=== PATIENT | female | born 1995 | race Caucasian/White ===

== ENCOUNTER 2017-12-25 13:17 | Inpatient (IN) | payer OTHER ==
[2017-12-25] MEDS ORDERED: ONDANSETRON HCL 4 MG/2 ML VIAL ONE (13:19)
[2017-12-25] MEDS ORDERED: MIDAZOLAM HCL 5 MG/ML VIAL (1 ML) ONE (13:26)
[2017-12-25] MEDS ORDERED: ceFAZolin 2 GM PREMIX 50 ML ONE (13:27)
[2017-12-25 13:45] VITALS: O2SAT 96
[2017-12-25 13:46] LABS: BASOPHIL # 0.1 TH/MM3 (0-0.2); BASOPHIL % 0.6 % (0.0-2.0); EOSINOPHIL # 0.1 TH/MM3 (0-0.4); EOSINOPHIL % 0.7 % (0.0-4.0); HEMATOCRIT 36.9 % (35.0-46.0); HEMOGLOBIN 12.8 GM/DL (11.6-15.3); LYMPHOCYTE # 2.8 TH/MM3 (1.0-4.8); MEAN CELL VOLUME 88.4 FL (80.0-100.0); MEAN CORPUSCULAR HEMOGLOBIN 30.6 PG (27.0-34.0); MEAN CORPUSCULAR HGB CONC 34.6 % (32.0-36.0); MEAN PLATELET VOLUME 11.7 FL (7.0-11.0); MONO % 4.4 % (0.0-8.0); MONOCYTE # 0.7 TH/MM3 (0-0.9); NEUT % 76.3 % (16.0-70.0); PLATELET COUNT 151 TH/MM3 (150-450); RED BLOOD COUNT 4.18 MIL/MM3 (4.00-5.30); RED CELL DISTRIBUTION WIDTH 12.9 % (11.6-17.2); WHITE BLOOD COUNT 15.7 TH/MM3 (4.0-11.0)
[2017-12-25 13:57] LABS: INTERNATIONAL NORMALIZED RATIO 1.1 RATIO; PROTHROMBIN TIME - PATIENT 11.6 SEC (9.8-11.6)
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
[2017-12-25] MEDS ORDERED: IOHEXOL 350 MG/ML 10 ML VIAL (for RAD DIAG) IVCONTRAST ONE (14:09)
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
[2017-12-25] MEDS ORDERED: SODIUM CHLORIDE 0.9% FLUSH 10 ML FLUSH IV FLUSH PRN (14:30)
[2017-12-25] MEDS ORDERED: ENALAPRILAT 1.25 MG/ML VIAL IV PUSH PRN (14:30)
[2017-12-25] MEDS ORDERED: MAGNESIUM HYDROXIDE SUSP 30 ML CUP PO PRN (14:30)
[2017-12-25] MEDS ORDERED: MISCELLANEOUS NURSING INFORMATION XX SCH (14:30)
[2017-12-25] MEDS ORDERED: CHLORHEXIDINE GLUCONATE 2 % 1 PACK (2 CLOTHS) TOP PRN (14:30)
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
[2017-12-25] MEDS ORDERED: oxyCODONE/ACETAMINOPHEN 5 MG/325 MG TAB PO PRN (14:45)
[2017-12-25] MEDS ORDERED: MORPHINE SULFATE 2 MG/ML SYRINGE IM PRN (14:45)
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
[2017-12-25] MEDS ORDERED: RESP: ALBUTEROL 2.5 MG/IPRATROPIUM 0.5 MG NEB (PRN) NEB (15:00)
[2017-12-25] MEDS ORDERED: POTASSIUM PHOSPHATE MONOBASIC 500 MG TAB PO/TUBE PRN (15:15)
[2017-12-25] MEDS ORDERED: POTASSIUM CHLORIDE 25 MEQ EFFERVESCENT TAB PO PRN ×2 (15:15)
[2017-12-25] MEDS ORDERED: POTASSIUM CHLOR 40 MEQ PREMIX 100 ML IV PRN ×2 (15:15)
[2017-12-25] MEDS ORDERED: MAGNESIUM SULFATE INJ 4 GM in SODIUM CHLORIDE 0.9% INJ 92 ML IV PRN (15:15)
[2017-12-25] MEDS ORDERED: POTASSIUM PHOSPHATE INJ 30 MMOL in SODIUM CHLOR 0.9% 250 ML INJ 250 ML IV PRN (15:15)
[2017-12-25] MEDS ORDERED: MAGNESIUM SULFATE INJ 2 GM in SODIUM CHLORIDE 0.9% INJ 96 ML IV PRN (15:15)
[2017-12-25] MEDS ORDERED: MAGNESIUM OXIDE 400 MG TAB PO PRN (15:15)
[2017-12-25] MEDS ORDERED: POTASSIUM CHLOR 20 MEQ PREMIX 100 ML IV PRN ×2 (15:15)
[2017-12-25] MEDS ORDERED: POTASSIUM PHOSPHATE MONOBASIC 500 MG TAB PO PRN (15:15)
[2017-12-25] MEDS ORDERED: SODIUM PHOSPHATE INJ 30 MMOL in SODIUM CHLOR 0.9% 250 ML INJ 240 ML IV PRN (15:15)
[2017-12-25] MEDS: MORPHINE SULFATE 4 MG/ML INJ IV PUSH PRN ×4 (15:25→21:30)
[2017-12-25] MEDS: ONDANSETRON HCL 4 MG/2 ML VIAL IV PUSH PRN ×2 (15:33→20:38)
[2017-12-25] MEDS: SODIUM CHLOR 0.9% 1000 ML INJ 1,000 ML IV SCH (15:35)
[2017-12-25 16:00] VITALS: BP 123/70; PULSE 78; RESP 20; TEMP 96.1; O2SAT 95
[2017-12-25] MEDS: oxyCODONE/ACETAMINOPHEN 5 MG/325 MG TAB PO PRN ×2 (16:41→20:30)
[2017-12-25] MEDS: RESP: ALBUTEROL 2.5 MG/IPRATROPIUM 0.5 MG NEB (SCH) NEB ×2 (16:50→22:29)
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
[2017-12-25 18:00] VITALS: PULSE 84
[2017-12-25 20:00] VITALS: BP 117/57; PULSE 110; RESP 29; TEMP 97.2; O2SAT 100
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
[2017-12-25] MEDS: MAGNESIUM HYDROXIDE SUSP 30 ML CUP PO SCH (21:00)
[2017-12-25] MEDS: LIDOCAINE HCL 5% PATCH T-DERMAL SCH (21:17)
[2017-12-25 22:00] VITALS: PULSE 69
[2017-12-25] MEDS ORDERED: ALPRAZolam 0.5 MG TAB PO PRN (22:00)
[2017-12-25 22:01] LABS: HEMATOCRIT 35.6 % (35.0-46.0)
[2017-12-25] MEDS: METHOCARBAMOL 500 MG TAB PO SCH (22:34)
[2017-12-26] VITALS (14 sets, daily range): BP systolic 108–122; BP diastolic 55–65; PULSE 64–102; RESP 12–28; TEMP 97.7–98.8; O2SAT 96–100
[2017-12-26] MEDS: MORPHINE SULFATE 4 MG/ML INJ IV PUSH PRN ×3 (00:28→06:42)
[2017-12-26] MEDS: CHLORHEXIDINE GLUCONATE 2 % 1 PACK (2 CLOTHS) TOP SCH (04:00)
[2017-12-26 04:32] LABS: AUTOMATED NEUTROPHIL # 8.8 TH/MM3 (1.8-7.7); BASOPHIL % 0.1 % (0.0-2.0); HEMATOCRIT 34.1 % (35.0-46.0); HEMOGLOBIN 11.8 GM/DL (11.6-15.3); LYMPH % 7.2 % (9.0-44.0); LYMPHOCYTE # 0.8 TH/MM3 (1.0-4.8); MEAN CELL VOLUME 90.1 FL (80.0-100.0); MEAN CORPUSCULAR HGB CONC 34.4 % (32.0-36.0); MEAN PLATELET VOLUME 11.8 FL (7.0-11.0); NEUT % 83.7 % (16.0-70.0); PLATELET COUNT 91 TH/MM3 (150-450); RED BLOOD COUNT 3.79 MIL/MM3 (4.00-5.30); RED CELL DISTRIBUTION WIDTH 13.2 % (11.6-17.2); WHITE BLOOD COUNT 10.6 TH/MM3 (4.0-11.0)
[2017-12-26] MEDS: RESP: ALBUTEROL 2.5 MG/IPRATROPIUM 0.5 MG NEB (SCH) NEB ×4 (04:35→21:28)
[2017-12-26 04:49] LABS: ALBUMIN 3.4 GM/DL (3.4-5.0); ALKALINE PHOSPHATASE 55 U/L (45-117); ALT (GPT) 113 U/L (10-53); AST (GOT) 131 U/L (15-37); BICARBONATE 24.4 MEQ/L (21.0-32.0); BLOOD UREA NITROGEN 8 MG/DL (7-18); CHLORIDE 108 MEQ/L (98-107); CREATININE 0.67 MG/DL (0.50-1.00); GLOMERULAR FILTRATION RATE 76 ML/MIN (>89); GLUCOSE,RANDOM 103 MG/DL (74-106); SODIUM (NA) 140 MEQ/L (136-145); TOTAL BILIRUBIN ADULT 0.5 MG/DL (0.2-1.0); TOTAL PROTEIN 6.4 GM/DL (6.4-8.2)
[2017-12-26] MEDS: oxyCODONE/ACETAMINOPHEN 5 MG/325 MG TAB PO PRN ×2 (04:53→09:17)
[2017-12-26] MEDS: SODIUM CHLOR 0.9% 1000 ML INJ 1,000 ML IV SCH ×3 (04:55→20:21)
[2017-12-26] MEDS: ONDANSETRON HCL 4 MG/2 ML VIAL IV PUSH PRN (04:56)
--- NOTE | 2017-12-26 05:46 | RADRPT ---
EXAM DATE/TIME: 12/26/2017 05:08 [facility] COMPARISON: CT THORAX W CONTRAST, December 25, 2017, 13:57. INDICATIONS : Short of breath. MEDICAL HISTORY : None. SURGICAL HISTORY : None. ENCOUNTER: Subsequent ACUITY: 2 days PAIN SCORE: 0/10 LOCATION: Bilateral chest FINDINGS: Multiple displaced and segmental rib fractures are again seen on the right. A right chest tube is pre sent. No pneumothorax. Patchy contusion of the right mid and lower lung again seen, not significantly changed. Right chest wall emphysema again noted. Left lung remains clear. Cardiomediastinal silhouette within normal limits. CONCLUSION: Right rib fractures with parenchymal contusion again noted. Chest tube remains in place. No pneumotho rax. No significant effusion. Rodolfo Lindquist MD on December 26, 2017 at 5:43 Board Certified Radiologist. This report was verified electronically.
[2017-12-26] MEDS: METHOCARBAMOL 500 MG TAB PO SCH ×3 (06:42→21:32)
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
[2017-12-26] MEDS: LIDOCAINE HCL 5% PATCH T-DERMAL SCH ×2 (09:00→09:17)
[2017-12-26] MEDS: MAGNESIUM HYDROXIDE SUSP 30 ML CUP PO SCH ×2 (09:00→21:00)
[2017-12-26] MEDS: PANTOPRAZOLE SODIUM 40 MG VIAL IVP SCH (09:17)
[2017-12-26] MEDS: ALPRAZolam 0.5 MG TAB PO PRN ×2 (09:17→21:32)
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
[2017-12-26] MEDS ORDERED: NALOXONE HCL 0.4 MG/ML AMP IV PUSH PRN (10:30)
[2017-12-26] MEDS ORDERED: diphenhydrAMINE HCL 25 MG CAP PO PRN (10:30)
[2017-12-26] MEDS: HYDROmorphone HCL PCA 6 MG/30 ML IV SCH (10:45)
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
[2017-12-26] MEDS ORDERED: IOHEXOL 350 MG/ML 10 ML VIAL (for RAD DIAG) IVCONTRAST ONE (15:14)
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
[2017-12-27] VITALS (13 sets, daily range): BP systolic 120–128; BP diastolic 68–80; PULSE 68–112; RESP 20–24; TEMP 98.4–99; O2SAT 95–100
[2017-12-27 00:33] LABS: HEMATOCRIT 30.7 % (35.0-46.0); HEMOGLOBIN 10.6 GM/DL (11.6-15.3)
[2017-12-27] MEDS: RESP: ALBUTEROL 2.5 MG/IPRATROPIUM 0.5 MG NEB (SCH) NEB ×4 (02:45→21:38)
[2017-12-27] MEDS: HYDROmorphone HCL PCA 6 MG/30 ML IV SCH ×2 (03:51→14:29)
[2017-12-27] MEDS: CHLORHEXIDINE GLUCONATE 2 % 1 PACK (2 CLOTHS) TOP SCH (04:00)
[2017-12-27 04:46] LABS: HEMATOCRIT 29.6 % (35.0-46.0); HEMOGLOBIN 10.1 GM/DL (11.6-15.3); MEAN CELL VOLUME 90.3 FL (80.0-100.0); MEAN CORPUSCULAR HEMOGLOBIN 30.7 PG (27.0-34.0); MEAN CORPUSCULAR HGB CONC 34.1 % (32.0-36.0); PLATELET COUNT 95 TH/MM3 (150-450); RED BLOOD COUNT 3.27 MIL/MM3 (4.00-5.30); RED CELL DISTRIBUTION WIDTH 13.4 % (11.6-17.2); WHITE BLOOD COUNT 8.5 TH/MM3 (4.0-11.0)
[2017-12-27 05:06] LABS: BICARBONATE 27.8 MEQ/L (21.0-32.0); CALCIUM 8.6 MG/DL (8.5-10.1); CREATININE 0.56 MG/DL (0.50-1.00)
--- NOTE | 2017-12-27 05:35 | RADRPT ---
EXAM DATE/TIME: 12/27/2017 03:55 [facility] COMPARISON: CHEST SINGLE AP, December 26, 2017, 5:08. INDICATIONS : Short of breath. MEDICAL HISTORY : None. SURGICAL HISTORY : None. ENCOUNTER: Subsequent ACUITY: 3 days PAIN SCORE: Non-responsive. LOCATION: Bilateral chest FINDINGS: Patchy mid lung consolidation on the right again noted and not significantly changed. Right chest tub e remains in place. No pneumothorax. Multiple right rib fractures are again seen. The left lung remains clear. Normal, stable heart size. CONCLUSION: No significant change. Right chest tube remains in place. No pneumothorax. Rodolfo Lindquist MD on December 27, 2017 at 5:33 Board Certified Radiologist. This report was verified electronically.
[2017-12-27] MEDS: METHOCARBAMOL 500 MG TAB PO SCH ×3 (06:00→22:48)
[2017-12-27] MEDS: SODIUM CHLOR 0.9% 1000 ML INJ 1,000 ML IV SCH ×2 (06:21→16:21)
[2017-12-27] MEDS: MAGNESIUM HYDROXIDE SUSP 30 ML CUP PO SCH ×2 (09:00→21:00)
[2017-12-27] MEDS: LIDOCAINE HCL 5% PATCH T-DERMAL SCH (09:56)
[2017-12-27] MEDS: PANTOPRAZOLE SODIUM 40 MG VIAL IVP SCH (09:56)
[2017-12-27] MEDS: ALPRAZolam 0.5 MG TAB PO PRN (09:58)
[2017-12-27] MEDS ORDERED: LIDOCAINE HCL 1% PF 5 ML SYRINGE OTHER ONE (12:00)
[2017-12-27] MEDS ORDERED: PROPOFOL 200 MG/20 ML AMP IV ONE (12:00)
[2017-12-27] MEDS ORDERED: PHENYLEPH/NS 1000 MCG/10 ML SYR IV ONE (12:00)
[2017-12-27] MEDS ORDERED: LACTATED RINGER'S 1000 ML INJ 1,000 ML IV ONE (12:00)
[2017-12-27] MEDS ORDERED: ONDANSETRON HCL 4 MG/2 ML VIAL IV PUSH ONE (12:00)
[2017-12-27] MEDS ORDERED: DEXAMETHASONE SOD PHOS 4 MG/ML VIAL IV ONE (12:00)
[2017-12-27] MEDS ORDERED: SUCCINYLCHOLINE CHLORIDE 100 MG/5 ML SYRINGE IV PUSH ONE (12:00)
[2017-12-27] MEDS: QUEtiapine FUMARATE 25 MG TAB PO SCH ×2 (13:25→22:48)
[2017-12-27] MEDS: GABAPENTIN 300 MG CAP PO SCH ×2 (13:25→18:00)
[2017-12-27] MEDS: CITALOPRAM HYDROBROMIDE 20 MG TAB PO SCH (13:25)
[2017-12-27] MEDS ORDERED: BUPIVACAINE HCL PF 0.25% 30 ML VIAL ONE (14:26)
[2017-12-27] MEDS ORDERED: VANCOMYCIN HCL 1000 MG VIAL ONE (14:27)
[2017-12-27] MEDS ORDERED: GENTAMICIN SULFATE 80 MG/2 ML VIAL ONE (14:27)
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
[2017-12-27] MEDS: PCA - TOTAL MG DILAUDID DELIVERED PER SHIFT SCH ×2 (15:00→22:00)
[2017-12-27] MEDS ORDERED: ceFAZolin 2 GM PREMIX 50 ML ONE (15:34)
--- NOTE | 2017-12-27 16:50 | HHI.PR ---
cc: Bri Navarro MD Immediate Post Op Note Procedure Date: Dec 27, 2017 Pre Op Diagnosis: Left distal radius fracture Post Op Diagnosis: same Surgeon: Bri Navarro Safety Associate(s): Lorie Galloway Procedure: Open reduction internal fixation left distal radius fracture Complications: none Specimen(s) removed: none Estimated blood loss: 5cc Anesthesia: General Drains: None IVF Patient to: PACU Patient Condition: Good Implant/Devices: SEE IMPLANT LOG (if applicable) Date/Time of Procedure: SEE SURGICAL CARE RECORD Bri Navarro MD Dec 27, 2017 16:50
[2017-12-27] MEDS ORDERED: Post-op Orders (for Pharmacy) XX ONE (17:00)
--- NOTE | 2017-12-27 17:19 | RADRPT ---
EXAM DATE/TIME: 12/27/2017 16:35 [facility] COMPARISON: No previous studies available for comparison. INDICATIONS : ORIF left wrist. MEDICAL HISTORY : None. SURGICAL HISTORY : None. ENCOUNTER: Initial ACUITY: 1 day PAIN SCORE: 0/10 LOCATION: Left wrist FINDINGS: Two view examination of the left wrist demonstrates post surgical changes following open reduction an d internal fixation of a distal left radial fracture. Fracture fragments are satisfactory aligned. In tercarpal joint appears anatomic. CONCLUSION: Satisfactory appearance of the left wrist following ORIF. Kirill Doherty MD on December 27, 2017 at 17:17 Board Certified Radiologist. This report was verified electronically.
[2017-12-27] MEDS ORDERED: DO NOT ADM ANY ANTICOAGULANT DRUGS PRN (18:05)
[2017-12-27] MEDS: SODIUM CHLORIDE 0.9% FLUSH 10 ML FLUSH IV FLUSH SCH (22:47)
[2017-12-27] MEDS: ONDANSETRON HCL 4 MG/2 ML VIAL IV PUSH PRN (22:49)
[2017-12-28] VITALS (13 sets, daily range): BP systolic 107–138; BP diastolic 57–79; PULSE 78–110; RESP 12–30; TEMP 98.2–98.7; O2SAT 95–100
[2017-12-28] MEDS: SODIUM CHLOR 0.9% 1000 ML INJ 1,000 ML IV SCH (02:21)
[2017-12-28] MEDS: CHLORHEXIDINE GLUCONATE 2 % 1 PACK (2 CLOTHS) TOP SCH ×2 (02:27→23:45)
[2017-12-28] MEDS: RESP: ALBUTEROL 2.5 MG/IPRATROPIUM 0.5 MG NEB (SCH) NEB ×4 (03:31→21:22)
[2017-12-28] MEDS: PCA - TOTAL MG DILAUDID DELIVERED PER SHIFT SCH ×3 (06:00→22:00)
[2017-12-28] MEDS: METHOCARBAMOL 500 MG TAB PO SCH ×3 (06:12→20:49)
--- NOTE | 2017-12-28 06:18 | RADRPT ---
EXAM DATE/TIME: 12/28/2017 04:57 [facility] COMPARISON: No previous studies available for comparison. INDICATIONS : Shortness of breath. MEDICAL HISTORY : None. SURGICAL HISTORY : None. ENCOUNTER: Subsequent ACUITY: 4 - 6 days PAIN SCORE: 6/10 LOCATION: Bilateral chest FINDINGS: Patchy consolidation again seen of the right lung, mostly the upper lobe. A right chest tube remains in place. No pneumothorax seen. Multiple right rib fractures again seen. Right chest wall emphysema p ersists. Left lung remains clear. CONCLUSION: No significant change patchy, upper lobe predominant right lung consolidation. Right chest tube witho ut a pneumothorax. Rodolfo Lindquist MD on December 28, 2017 at 6:14 Board Certified Radiologist. This report was verified electronically.
[2017-12-28 06:50] LABS: AUTOMATED NEUTROPHIL # 8.3 TH/MM3 (1.8-7.7); BASOPHIL % 0.3 % (0.0-2.0); HEMATOCRIT 30.5 % (35.0-46.0); HEMOGLOBIN 10.6 GM/DL (11.6-15.3); LYMPHOCYTE # 0.4 TH/MM3 (1.0-4.8); MEAN CORPUSCULAR HEMOGLOBIN 31.2 PG (27.0-34.0); MEAN CORPUSCULAR HGB CONC 34.7 % (32.0-36.0); MEAN PLATELET VOLUME 11.2 FL (7.0-11.0); MONO % 5.2 % (0.0-8.0); MONOCYTE # 0.5 TH/MM3 (0-0.9); NEUT % 90.5 % (16.0-70.0); PLATELET COUNT 106 TH/MM3 (150-450); RED BLOOD COUNT 3.39 MIL/MM3 (4.00-5.30); RED CELL DISTRIBUTION WIDTH 13.2 % (11.6-17.2); WHITE BLOOD COUNT 9.2 TH/MM3 (4.0-11.0)
[2017-12-28 07:19] LABS: ALBUMIN 3.4 GM/DL (3.4-5.0); AST (GOT) 52 U/L (15-37); BICARBONATE 28.2 MEQ/L (21.0-32.0); BLOOD UREA NITROGEN 4 MG/DL (7-18); CALCIUM 9.1 MG/DL (8.5-10.1); CHLORIDE 107 MEQ/L (98-107); CREATININE 0.52 MG/DL (0.50-1.00); GLOMERULAR FILTRATION RATE 147 ML/MIN (>89); GLUCOSE,RANDOM 102 MG/DL (74-106); SODIUM (NA) 143 MEQ/L (136-145)
[2017-12-28 07:22] LABS: ALKALINE PHOSPHATASE 58 U/L (45-117); ALT (GPT) 66 U/L (10-53); TOTAL BILIRUBIN ADULT 0.6 MG/DL (0.2-1.0); TOTAL PROTEIN 7.2 GM/DL (6.4-8.2)
[2017-12-28] MEDS: CITALOPRAM HYDROBROMIDE 20 MG TAB PO SCH (08:32)
[2017-12-28] MEDS: ALPRAZolam 0.5 MG TAB PO PRN ×2 (08:32→20:49)
[2017-12-28] MEDS: LIDOCAINE HCL 5% PATCH T-DERMAL SCH (08:32)
[2017-12-28] MEDS: FAMOTIDINE 20 MG TAB PO SCH ×2 (08:32→20:49)
[2017-12-28] MEDS: MAGNESIUM HYDROXIDE SUSP 30 ML CUP PO SCH ×2 (08:33→20:48)
[2017-12-28] MEDS: SODIUM CHLORIDE 0.9% FLUSH 10 ML FLUSH IV FLUSH SCH ×2 (08:33→20:49)
[2017-12-28] MEDS: GABAPENTIN 300 MG CAP PO SCH ×3 (08:33→17:08)
[2017-12-28] MEDS: QUEtiapine FUMARATE 25 MG TAB PO SCH ×2 (08:33→20:49)
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
[2017-12-28] MEDS: HYDROmorphone HCL PCA 6 MG/30 ML IV SCH (10:19)
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
[2017-12-28] MEDS: KETOROLAC TROMETHAMINE 30 MG/ML (IVP) VIAL IV PUSH PRN (23:35)
[2017-12-29] VITALS (11 sets, daily range): BP systolic 105–129; BP diastolic 57–77; PULSE 73–116; RESP 13–19; TEMP 98.4–98.8; O2SAT 95–98
[2017-12-29] MEDS: KETOROLAC TROMETHAMINE 30 MG/ML (IVP) VIAL IV PUSH PRN ×2 (02:47→14:28)
[2017-12-29] MEDS: RESP: ALBUTEROL 2.5 MG/IPRATROPIUM 0.5 MG NEB (SCH) NEB ×2 (04:22→08:22)
--- NOTE | 2017-12-29 05:40 | RADRPT ---
EXAM DATE/TIME: 12/29/2017 04:38 [facility] COMPARISON: CHEST SINGLE AP, December 28, 2017, 4:57. INDICATIONS : Shortness of breath MEDICAL HISTORY : None. SURGICAL HISTORY : None. ENCOUNTER: Initial ACUITY: 4 - 6 days PAIN SCORE: 8/10 LOCATION: Right chest FINDINGS: Right chest tube remains in place. Focal parenchymal consolidation in the right upper lobe unchanged. No pneumothorax seen. Multiple right rib fractures are again noted. Left lung remains clear. CONCLUSION: No significant change. Right chest tube remains in place with upper lobe predominant parenchymal cons olidation. No pneumothorax. Rodolfo Lindquist MD on December 29, 2017 at 5:38 Board Certified Radiologist. This report was verified electronically.
[2017-12-29] MEDS: METHOCARBAMOL 500 MG TAB PO SCH ×3 (06:00→22:00)
[2017-12-29] MEDS: PCA - TOTAL MG DILAUDID DELIVERED PER SHIFT SCH ×2 (06:49→13:59)
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
[2017-12-29] MEDS: HYDROmorphone HCL PCA 6 MG/30 ML IV SCH (08:51)
[2017-12-29] MEDS: ALPRAZolam 0.5 MG TAB PO PRN (08:55)
[2017-12-29] MEDS: SODIUM CHLORIDE 0.9% FLUSH 10 ML FLUSH IV FLUSH SCH ×2 (08:56→22:16)
[2017-12-29] MEDS: GABAPENTIN 300 MG CAP PO SCH ×3 (08:57→18:00)
[2017-12-29] MEDS: LIDOCAINE HCL 5% PATCH T-DERMAL SCH (08:57)
[2017-12-29] MEDS: FAMOTIDINE 20 MG TAB PO SCH ×2 (08:57→21:00)
[2017-12-29] MEDS: QUEtiapine FUMARATE 25 MG TAB PO SCH ×2 (08:57→21:00)
[2017-12-29] MEDS: MAGNESIUM HYDROXIDE SUSP 30 ML CUP PO SCH ×2 (08:57→21:00)
[2017-12-29] MEDS: CITALOPRAM HYDROBROMIDE 20 MG TAB PO SCH (08:57)
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
[2017-12-29] MEDS: NICOTINE 14 MG/24 HR PATCH T-DERMAL SCH (11:24)
[2017-12-29] MEDS ORDERED: GLYCOPYRROLATE 1 MG/5 ML SYRINGE IV PUSH ONE (12:00)
[2017-12-29] MEDS ORDERED: ONDANSETRON HCL 4 MG/2 ML VIAL IV ONE (12:00)
[2017-12-29] MEDS ORDERED: ceFAZolin INJ 1,000 MG VIAL IV ONE (12:00)
[2017-12-29] MEDS ORDERED: PROPOFOL 200 MG/20 ML AMP IV ONE (12:00)
[2017-12-29] MEDS ORDERED: LIDOCAINE HCL 1% PF 5 ML SYRINGE OTHER ONE (12:00)
[2017-12-29] MEDS ORDERED: ROCURONIUM INJ 50 MG/5 ML SYRINGE IV PUSH ONE (12:00)
[2017-12-29] MEDS ORDERED: LACTATED RINGER'S 1000 ML INJ 1,000 ML IV ONE (12:00)
[2017-12-29] MEDS ORDERED: NEOSTIGMINE 5 MG/5 ML SYRINGE IV PUSH ONE (12:00)
[2017-12-29] MEDS ORDERED: DEXAMETHASONE SOD PHOS 4 MG/ML VIAL IV ONE (12:00)
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
[2017-12-29 12:33] LABS: HEMOGLOBIN 8.6 GM/DL (11.6-15.3); MEAN CELL VOLUME 89.9 FL (80.0-100.0); MEAN CORPUSCULAR HEMOGLOBIN 30.9 PG (27.0-34.0); MEAN CORPUSCULAR HGB CONC 34.4 % (32.0-36.0); MEAN PLATELET VOLUME 9.7 FL (7.0-11.0); PLATELET COUNT 114 TH/MM3 (150-450); RED BLOOD COUNT 2.78 MIL/MM3 (4.00-5.30); RED CELL DISTRIBUTION WIDTH 12.8 % (11.6-17.2); WHITE BLOOD COUNT 5.7 TH/MM3 (4.0-11.0)
[2017-12-29 12:45] LABS: PROTHROMBIN TIME - PATIENT 10.6 SEC (9.8-11.6)
[2017-12-29 12:59] LABS: BICARBONATE 28.6 MEQ/L (21.0-32.0); CALCIUM 8.7 MG/DL (8.5-10.1); CREATININE 0.51 MG/DL (0.50-1.00)
[2017-12-29] MEDS: ONDANSETRON HCL 4 MG/2 ML VIAL IV PUSH PRN (13:55)
[2017-12-29] MEDS ORDERED: BUPIVACAINE/EPINEPHRINE 0.25% 50 ML VIAL ONE (14:25)
[2017-12-29] MEDS ORDERED: ACETAMINOPHEN 1000 MG/100 ML 100 ML IV ONE (16:01)
[2017-12-29] MEDS ORDERED: CHLORHEXIDINE GLUCONATE 0.12% 15 ML CUP ONE (16:02)
[2017-12-29] MEDS ORDERED: BACITRACIN TOP OINT 15 GM TUBE ONE (17:12)
[2017-12-29] MEDS ORDERED: PROMETHAZINE INJ 25 MG/ML VIAL ONE (17:24)
[2017-12-29] MEDS ORDERED: MIDAZOLAM HCL 2 MG/2 ML VIAL ONE (19:17)
[2017-12-29] MEDS ORDERED: DO NOT ADM ANY ANTICOAGULANT DRUGS PRN (20:30)
[2017-12-29] MEDS ORDERED: *morphine SULFATE 4 MG/ML PERIprocedure ONLY ONE ×2 (20:39→20:51)
[2017-12-29] MEDS ORDERED: DIMETHICONE/OXYBENZONE/PADMIATE LIP BALM 4.25 GM TOPICAL ONE (20:56)
[2017-12-29] MEDS: REMOVE OLD PATCH T-DERMAL SCH (21:00)
[2017-12-29] MEDS ORDERED: PROMETHAZINE INJ 25 MG/ML VIAL IV-CENTRAL PRN (21:30)
[2017-12-29] MEDS: ONDANSETRON HCL 4 MG/2 ML VIAL IV PUSH SCH (22:16)
[2017-12-30 00:29] VITALS: BP 123/70; PULSE 96; RESP 17; TEMP 97.8; O2SAT 96
[2017-12-30] MEDS: ALPRAZolam 0.5 MG TAB PO PRN ×2 (02:10→11:07)
[2017-12-30 04:00] VITALS: BP 106/58; PULSE 82; RESP 16; TEMP 98.1; O2SAT 96
[2017-12-30] MEDS: CHLORHEXIDINE GLUCONATE 2 % 1 PACK (2 CLOTHS) TOP SCH (04:00)
[2017-12-30 04:09] LABS: AUTOMATED NEUTROPHIL # 8.4 TH/MM3 (1.8-7.7); BASOPHIL % 0.2 % (0.0-2.0); HEMATOCRIT 25.9 % (35.0-46.0); HEMOGLOBIN 8.9 GM/DL (11.6-15.3); LYMPH % 2.6 % (9.0-44.0); LYMPHOCYTE # 0.2 TH/MM3 (1.0-4.8); MEAN CELL VOLUME 89.9 FL (80.0-100.0); MEAN CORPUSCULAR HEMOGLOBIN 30.8 PG (27.0-34.0); MEAN CORPUSCULAR HGB CONC 34.3 % (32.0-36.0); MEAN PLATELET VOLUME 9.6 FL (7.0-11.0); MONO % 4.9 % (0.0-8.0); MONOCYTE # 0.4 TH/MM3 (0-0.9); NEUT % 92.3 % (16.0-70.0); PLATELET COUNT 137 TH/MM3 (150-450); RED BLOOD COUNT 2.88 MIL/MM3 (4.00-5.30); RED CELL DISTRIBUTION WIDTH 12.7 % (11.6-17.2); WHITE BLOOD COUNT 9.1 TH/MM3 (4.0-11.0)
[2017-12-30 04:30] LABS: BICARBONATE 28.8 MEQ/L (21.0-32.0); CALCIUM 8.5 MG/DL (8.5-10.1); CREATININE 0.5 MG/DL (0.50-1.00)
[2017-12-30] MEDS: HYDROmorphone HCL PCA 6 MG/30 ML IV SCH (05:36)
[2017-12-30] MEDS: ONDANSETRON HCL 4 MG/2 ML VIAL IV PUSH SCH ×3 (05:38→20:56)
[2017-12-30] MEDS: METHOCARBAMOL 500 MG TAB PO SCH ×3 (05:38→20:55)
[2017-12-30] MEDS ORDERED: oxyCODONE HCL ORAL CONC 5 MG/0.25 ML SYRINGE PO PRN (07:00)
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
[2017-12-30 08:36] VITALS: BP 108/59; PULSE 84; RESP 18; TEMP 98.1; O2SAT 97
[2017-12-30] MEDS: MAGNESIUM HYDROXIDE SUSP 30 ML CUP PO SCH ×2 (09:00→20:58)
[2017-12-30] MEDS: LACTULOSE SYRUP 20 GM/30 ML CUP PO SCH (09:31)
[2017-12-30] MEDS: QUEtiapine FUMARATE 25 MG TAB PO SCH ×2 (09:32→20:55)
[2017-12-30] MEDS: CITALOPRAM HYDROBROMIDE 20 MG TAB PO SCH (09:33)
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
[2017-12-30] MEDS: NICOTINE 14 MG/24 HR PATCH T-DERMAL SCH (11:05)
[2017-12-30] MEDS: SODIUM CHLORIDE 0.9% FLUSH 10 ML FLUSH IV FLUSH SCH ×2 (11:06→20:58)
[2017-12-30] MEDS: GABAPENTIN 250 MG/5 ML UDC PO SCH ×3 (11:06→16:56)
[2017-12-30] MEDS: LIDOCAINE HCL 5% PATCH T-DERMAL SCH (11:10)
[2017-12-30 12:04] VITALS: BP 125/78; PULSE 96; RESP 18; TEMP 97.9; O2SAT 99
--- NOTE | 2017-12-30 13:51 | HHI.PR ---
Subjective Subjective Notes Late entry 12/29/17 Going to OR today with OMFS Pain controlled on GAME PROGRAMER Plan to DC chest tube tomorrow Objective Vitals/I&O Vital Signs Date Time Temp Pulse Resp B/P (MAP) Pulse Ox O2 Delivery O2 Flow Rate FiO2 12/30/17 12:04 97.9 96 18 125/78 (94) 99 12/29/17 21:00 Room Air 12/29/17 19:45 3 12/29/17 08:23 21 Labs Laboratory Tests Test 12/30/17 03:51 White Blood Count 9.1 Red Blood Count 2.88 Hemoglobin 8.9 Hematocrit 25.9 Mean Corpuscular Volume 89.9 Mean Corpuscular Hemoglobin 30.8 Mean Corpuscular Hemoglobin Concent 34.3 Red Cell Distribution Width 12.7 Platelet Count 137 Mean Platelet Volume 9.6 Neutrophils (%) (Auto) 92.3 Lymphocytes (%) (Auto) 2.6 Monocytes (%) (Auto) 4.9 Eosinophils (%) (Auto) 0.0 Basophils (%) (Auto) 0.2 Neutrophils # (Auto) 8.4 Lymphocytes # (Auto) 0.2 Monocytes # (Auto) 0.4 Eosinophils # (Auto) 0.0 Basophils # (Auto) 0.0 CBC Comment DIFF FINAL Differential Comment Blood Urea Nitrogen 9 Creatinine 0.50 Random Glucose 131 Calcium Level 8.5 Sodium Level 142 Potassium Level 4.0 Chloride Level 106 Carbon Dioxide Level 28.8 Anion Gap 7 Estimat Glomerular Filtration Rate 154 Radiology Last Impressions Chest X-Ray 12/30/17 0600 Signed Impressions: Service Date/Time: Saturday, December 30, 2017 06:25 - CONCLUSION: There is progressive opacification of the right hemithorax consistent with contusion. Pneumothorax is not visible on this exam. Multiple posterior rib fractures are unchanged from prior exam. Lola Alonso MD Maxillofacial CT 12/29/17 0000 Signed Impressions: Service Date/Time: Saturday, December 30, 2017 10:07 - CONCLUSION: Right-sided orbitofacial and mandibular fractures are grossly unchanged. Upper cervical spine fractures also grossly unchanged Rodolfo Rosas MD Wrist X-Ray 12/27/17 0000 Signed Impressions: Service Date/Time: Wednesday, December 27, 2017 16:35 - CONCLUSION: Satisfactory appearance of the left wrist following ORIF. Kirill Doherty MD Neck CTA 12/26/17 0000 Signed Impressions: Service Date/Time: Tuesday, December 26, 2017 15:12 - CONCLUSION: 1. Normal carotid arteries. 2. Vertebral arteries are intact. Arturo Barriga MD Pelvis X-Ray 12/25/17 1324 Signed Impressions: Service Date/Time: Monday, December 25, 2017 13:17 - CONCLUSION: Grossly satisfactory trauma pelvis appearance Rodolfo Rosas MD Head CT 12/25/17 1324 Signed Impressions: Service Date/Time: Monday, December 25, 2017 13:44 - CONCLUSION: Probable calcifications in the left lentiform nucleus. We have no comparison exams, however. Followup to assure stability would be suggested. Rodolfo Rosas MD Chest CT 12/25/17 1324 Signed Impressions: Service Date/Time: Monday, December 25, 2017 13:57 - CONCLUSION: Right lung contusion Chest tube in place for hemopneumothorax. Multiple right rib fractures and right scapular tip fracture Rodolfo Rosas MD Cervical Spine CT 12/25/17 1324 Signed Impressions: Service Date/Time: Monday, December 25, 2017 13:44 - CONCLUSION: Fractures of the ring of C1 with mild displacement/distraction. Spinous process fracture at C7 Rodolfo Rosas MD Abdomen/Pelvis CT 12/25/17 1324 Signed Impressions: Service Date/Time: Monday, December 25, 2017 13:57 - CONCLUSION: No acute traumatic injury in the abdomen or pelvis. Rodolfo Rosas MD Radius/Ulna X-Ray 12/25/17 0000 Signed Impressions: Service Date/Time: Monday, December 25, 2017 13:17 - CONCLUSION: Comminuted and displaced distal left radial fracture and ulnar styloid fracture Rodolfo Rosas MD Femur X-Ray 12/25/17 0000 Signed Impressions: Service Date/Time: Monday, December 25, 2017 13:27 - CONCLUSION: Unremarkable examination of the right femur. Rodolfo Rosas MD Narrative Exam GENERAL: well-nourished, well developed. SKIN: Warm and dry. HEAD: Normocephalic. EYES: Pupils equal and round. No scleral icterus. ENT: No nasal bleeding or discharge. Mucous membranes pink and moist. NECK: Trachea midline. No JVD. CARDIOVASCULAR: Regular rate and rhythm. RESPIRATORY: No accessory muscle use. Lungs clear to auscultation. Breath sounds equal bilaterally. GASTROINTESTINAL: Abdomen soft, non-tender, nondistended. + BS. MUSCULOSKELETAL: Extremities without cyanosis, or edema. MAEW, + perfused NEUROLOGICAL: Awake and alert. Normal speech. Alex Ingram [facility] Dec 30, 2017 13:51
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
[2017-12-30] MEDS: KETOROLAC TROMETHAMINE 30 MG/ML (IVP) VIAL IV PUSH SCH ×2 (14:34→16:56)
[2017-12-30] MEDS: oxyCODONE HCL ORAL CONC 5 MG/0.25 ML SYRINGE PO PRN ×2 (14:37→20:57)
[2017-12-30 16:41] VITALS: BP 129/71; PULSE 111; RESP 18; TEMP 98.4; O2SAT 98
[2017-12-30] MEDS: MORPHINE SULFATE 4 MG/ML INJ IV PUSH PRN (16:49)
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
[2017-12-30] MEDS: ENOXAPARIN SODIUM 30 MG/0.3 ML SYRINGE SQ SCH (20:54)
[2017-12-30] MEDS: CHLORHEXIDINE GLUCONATE 0.12% 15 ML CUP SWISH-SPIT SCH (20:55)
[2017-12-30] MEDS: REMOVE OLD PATCH T-DERMAL SCH (21:00)
[2017-12-30 21:07] VITALS: BP 114/67; PULSE 106; RESP 18; TEMP 98.1; O2SAT 99
[2017-12-31 00:37] VITALS: BP 99/54; PULSE 67; RESP 18; TEMP 97.3; O2SAT 97
[2017-12-31] MEDS: KETOROLAC TROMETHAMINE 30 MG/ML (IVP) VIAL IV PUSH SCH ×3 (00:40→12:37)
[2017-12-31] MEDS: SODIUM CHLORIDE 0.9% FLUSH 10 ML FLUSH IV FLUSH PRN ×3 (00:41→05:29)
[2017-12-31] MEDS: CHLORHEXIDINE GLUCONATE 2 % 1 PACK (2 CLOTHS) TOP SCH (04:00)
[2017-12-31] MEDS: MORPHINE SULFATE 4 MG/ML INJ IV PUSH PRN ×2 (04:20→09:25)
[2017-12-31 05:15] VITALS: BP 115/60; PULSE 85; RESP 18; TEMP 97.3; O2SAT 98
[2017-12-31] MEDS: METHOCARBAMOL 500 MG TAB PO SCH ×3 (05:29→20:23)
[2017-12-31] MEDS: ONDANSETRON HCL 4 MG/2 ML VIAL IV PUSH SCH ×2 (05:29→14:00)
--- NOTE | 2017-12-31 06:12 | RADRPT ---
EXAM DATE/TIME: 12/31/2017 05:11 [facility] COMPARISON: CHEST SINGLE AP, December 30, 2017, 6:25. INDICATIONS : Right chest tube removal MEDICAL HISTORY : Mandible fracture, cervical spine fracture SURGICAL HISTORY : None. ENCOUNTER: Initial ACUITY: 1 day PAIN SCORE: 0/10 LOCATION: Right chest FINDINGS: There is been interval removal of the right thoracostomy tube. No pneumothorax. Subcutaneous air over lies the right upper chest. Lungs are clear bilaterally. Heart is normal in size. Multiple right-side d rib fractures. CONCLUSION: No pneumothorax following right chest tube removal. Brigido Fortune Jr., MD on December 31, 2017 at 6:09 Board Certified Radiologist. This report was verified electronically.
[2017-12-31 08:00] VITALS: BP 106/60; PULSE 74; RESP 16; TEMP 97.9; O2SAT 96
[2017-12-31] MEDS: MAGNESIUM HYDROXIDE SUSP 30 ML CUP PO SCH ×2 (09:00→20:12)
[2017-12-31] MEDS: LACTULOSE SYRUP 20 GM/30 ML CUP PO SCH (09:00)
[2017-12-31] MEDS: GABAPENTIN 250 MG/5 ML UDC PO SCH ×3 (09:00→17:25)
[2017-12-31] MEDS: CHLORHEXIDINE GLUCONATE 0.12% 15 ML CUP SWISH-SPIT SCH ×2 (09:00→20:12)
[2017-12-31] MEDS: LIDOCAINE HCL 5% PATCH T-DERMAL SCH (09:25)
[2017-12-31] MEDS: QUEtiapine FUMARATE 25 MG TAB PO SCH ×2 (09:26→20:11)
[2017-12-31] MEDS: ENOXAPARIN SODIUM 30 MG/0.3 ML SYRINGE SQ SCH ×2 (09:26→20:12)
[2017-12-31] MEDS: SODIUM CHLORIDE 0.9% FLUSH 10 ML FLUSH IV FLUSH SCH ×2 (09:28→20:12)
[2017-12-31] MEDS: NICOTINE 14 MG/24 HR PATCH T-DERMAL SCH (09:33)
[2017-12-31] MEDS: CITALOPRAM HYDROBROMIDE 20 MG TAB PO SCH (09:46)
[2017-12-31 12:00] VITALS: BP 115/69; PULSE 73; RESP 17; TEMP 97.7; O2SAT 98
[2017-12-31] MEDS ORDERED: IBUPROFEN SUSP 100 MG/5 ML 120 ML BOTTLE PO SCH (14:00)
[2017-12-31] MEDS: IBUPROFEN 600 MG TAB PO SCH ×2 (15:32→20:23)
[2017-12-31 16:00] VITALS: BP 126/72; PULSE 105; RESP 17; TEMP 98.2; O2SAT 100
[2017-12-31] MEDS: oxyCODONE HCL ORAL CONC 5 MG/0.25 ML SYRINGE PO PRN ×2 (16:17→20:11)
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
[2017-12-31] MEDS ORDERED: MAGNESIUM CITRATE SOLN 300 ML BTL PO ONE (16:45)
[2017-12-31 20:00] VITALS: BP 117/69; PULSE 89; RESP 18; TEMP 98.3; O2SAT 99
[2017-12-31] MEDS: REMOVE OLD PATCH T-DERMAL SCH (20:26)
[2017-12-31] MEDS ORDERED: ONDANSETRON HCL 4 MG/2 ML VIAL IV PUSH PRN (22:00)
[2018-01-01] VITALS: BP 109/67; PULSE 65; RESP 18; TEMP 97.7; O2SAT 97
[2018-01-01] MEDS: CHLORHEXIDINE GLUCONATE 2 % 1 PACK (2 CLOTHS) TOP SCH ×2 (00:59→20:17)
[2018-01-01] MEDS: oxyCODONE HCL ORAL CONC 5 MG/0.25 ML SYRINGE PO PRN ×4 (02:19→15:28)
[2018-01-01 04:00] VITALS: BP 114/70; PULSE 58; RESP 18; TEMP 97.8; O2SAT 97
[2018-01-01] MEDS: IBUPROFEN 600 MG TAB PO SCH ×4 (06:21→21:02)
[2018-01-01] MEDS: METHOCARBAMOL 500 MG TAB PO SCH ×4 (06:21→21:02)
[2018-01-01] MEDS ORDERED: MAGNESIUM CITRATE SOLN 300 ML BTL PO ONE (06:30)
[2018-01-01 08:00] VITALS: BP 110/65; PULSE 61; RESP 18; TEMP 97.8; O2SAT 97
[2018-01-01] MEDS: MAGNESIUM HYDROXIDE SUSP 30 ML CUP PO SCH ×2 (08:38→20:16)
[2018-01-01] MEDS: CHLORHEXIDINE GLUCONATE 0.12% 15 ML CUP SWISH-SPIT SCH ×2 (08:38→21:04)
[2018-01-01] MEDS: LACTULOSE SYRUP 20 GM/30 ML CUP PO SCH (08:38)
[2018-01-01] MEDS: NICOTINE 14 MG/24 HR PATCH T-DERMAL SCH (08:40)
[2018-01-01] MEDS: GABAPENTIN 250 MG/5 ML UDC PO SCH ×3 (08:41→17:40)
[2018-01-01] MEDS: SODIUM CHLORIDE 0.9% FLUSH 10 ML FLUSH IV FLUSH SCH ×2 (08:41→21:04)
[2018-01-01] MEDS: ENOXAPARIN SODIUM 30 MG/0.3 ML SYRINGE SQ SCH ×2 (08:41→21:03)
[2018-01-01] MEDS: QUEtiapine FUMARATE 25 MG TAB PO SCH ×2 (08:41→21:02)
[2018-01-01] MEDS: LIDOCAINE HCL 5% PATCH T-DERMAL SCH (08:41)
[2018-01-01] MEDS: CITALOPRAM HYDROBROMIDE 20 MG TAB PO SCH (08:41)
[2018-01-01 12:00] VITALS: BP 119/68; PULSE 73; RESP 18; TEMP 97.8; O2SAT 99
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
[2018-01-01 16:00] VITALS: BP 125/62; PULSE 83; RESP 18; TEMP 97.6; O2SAT 98
[2018-01-01] MEDS ORDERED: CELE20TA PO (16:34)
[2018-01-01] MEDS ORDERED: HYDR0.1S8 PO (16:34)
[2018-01-01] MEDS ORDERED: MAGN30S PO (16:34)
[2018-01-01] MEDS ORDERED: Chlorhexidine 0.12% Liq SWISH-SPIT (16:34)
[2018-01-01] MEDS ORDERED: LIDO1ADH4 T-DERMAL (16:34)
[2018-01-01 20:00] VITALS: BP_SYST 112; BP_SYST 114; BP_DIAS 51; BP_DIAS 64; PULSE 61; PULSE 85; RESP 18; TEMP 97.5; TEMP 97.9; O2SAT 96; O2SAT 97
[2018-01-01] MEDS: REMOVE OLD PATCH T-DERMAL SCH (21:04)
[2018-01-01] MEDS: ACETAMINOPHEN 325MG/HYDROcodone 7.5MG/15ML UDC PO PRN (21:11)
[2018-01-02] VITALS: BP 97/56; PULSE 73; RESP 16; TEMP 98.2; O2SAT 96
[2018-01-02 04:00] VITALS: BP 108/73; PULSE 106; RESP 16; TEMP 97.3; O2SAT 97
[2018-01-02] MEDS: ACETAMINOPHEN 325MG/HYDROcodone 7.5MG/15ML UDC PO PRN ×2 (05:16→12:31)
[2018-01-02] MEDS: IBUPROFEN 600 MG TAB PO SCH ×2 (05:18→09:30)
[2018-01-02] MEDS: METHOCARBAMOL 500 MG TAB PO SCH (05:19)
[2018-01-02 08:00] VITALS: BP 112/71; PULSE 80; RESP 19; TEMP 97.8; O2SAT 97
[2018-01-02] MEDS: ENOXAPARIN SODIUM 30 MG/0.3 ML SYRINGE SQ SCH (08:02)
[2018-01-02] MEDS: MAGNESIUM HYDROXIDE SUSP 30 ML CUP PO SCH (08:02)
[2018-01-02] MEDS: GABAPENTIN 250 MG/5 ML UDC PO SCH ×2 (08:02→13:00)
[2018-01-02] MEDS: LACTULOSE SYRUP 20 GM/30 ML CUP PO SCH (08:02)
[2018-01-02] MEDS: CITALOPRAM HYDROBROMIDE 20 MG TAB PO SCH (08:04)
[2018-01-02] MEDS: CHLORHEXIDINE GLUCONATE 0.12% 15 ML CUP SWISH-SPIT SCH (08:05)
[2018-01-02] MEDS: QUEtiapine FUMARATE 25 MG TAB PO SCH (08:05)
[2018-01-02] MEDS: NICOTINE 14 MG/24 HR PATCH T-DERMAL SCH (08:05)
[2018-01-02] MEDS: LIDOCAINE HCL 5% PATCH T-DERMAL SCH (08:06)
[2018-01-02] MEDS: SODIUM CHLORIDE 0.9% FLUSH 10 ML FLUSH IV FLUSH SCH (08:07)
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
[2018-01-02 12:00] VITALS: BP 115/73; PULSE 69; RESP 18; TEMP 97.5; O2SAT 98
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
== END 2018-01-02 14:44 | disposition home health service (06) | DRG 510 ==
LOC: NEPI 13:17 → EDBD 14:34 → NEDH 14:34 → N03A 14:53 → N05B 12-29 16:54
PROVIDERS: ADMIT Surgery; ATTEND Surgery
PROC: 0W9930Z Drainage of Right Pleural Cavity with Drainage Device, Percutaneous Approach (ICD-10-PCS; 2017-12-25)
PROC: 0PSJ04Z Reposition Left Radius with Internal Fixation Device, Open Approach (ICD-10-PCS; principal; 2017-12-27 15:33)
PROC: 0NSM0ZZ Reposition Right Zygomatic Bone, Open Approach (ICD-10-PCS; 2017-12-29)
PROC: 0NST35Z Reposition Right Mandible with External Fixation Device, Percutaneous Approach (ICD-10-PCS; 2017-12-29)
DX: S52.552A Other extraarticular fracture of lower end of left radius, initial encounter for closed fracture (principal); S27.2XXA Traumatic hemopneumothorax, initial encounter; S02.31XA Fracture of orbital floor, right side, initial encounter for closed fracture; S27.321A Contusion of lung, unilateral, initial encounter; S12.090A Other displaced fracture of first cervical vertebra, initial encounter for closed fracture; S12.600A Unspecified displaced fracture of seventh cervical vertebra, initial encounter for closed fracture; S22.41XA Multiple fractures of ribs, right side, initial encounter for closed fracture; S02.40EA Zygomatic fracture, right side, initial encounter for closed fracture; S02.621A Fracture of subcondylar process of right mandible, initial encounter for closed fracture; S06.0X1A Concussion with loss of consciousness of 30 minutes or less, initial encounter; S52.612A Displaced fracture of left ulna styloid process, initial encounter for closed fracture; S42.101A Fracture of unspecified part of scapula, right shoulder, initial encounter for closed fracture; F43.22 Adjustment disorder with anxiety; F31.9 Bipolar disorder, unspecified; M54.9 Dorsalgia, unspecified; R40.2412 Glasgow coma scale score 13-15, at arrival to emergency department; R51 Headache; V89.2XXA Person injured in unspecified motor-vehicle accident, traffic, initial encounter; Y92.410 Unspecified street and highway as the place of occurrence of the external cause
CPT/HCPCS: 32551; 70450; 70486; 70498; 71045; 71260; 72125; 72170; 73100; 73110; 73551; 74177; 76000; 80048; 80053; 84100; 85014; 85018; 85025; 85027; 85610; 85730; 86850; 86900; 86901; 87641; 94150; 94640; 94664; 94667; 94668; 96374; 96375; 99291; C9113; G0390; J0131; J0330; J0690; J1100; J1170; J1580; J1650; J1885; J2250; J2270; J2370; J2405; J2550; J2710; J3010; J3370; J7030; J7050; J7120; L0150; L0172; Q9967

== ENCOUNTER 2018-01-03 18:56 | Emergency (ER) | payer SELFPAY ==
[~2018-01-03] VITALS: Ht 162.6 cm; Wt 60.0 kg
[~2018-01-03 18:56] MED LIST: CELE20TA PO; Chlorhexidine 0.12% Liq SWISH-SPIT; HYDR0.1S8 PO; LIDO1ADH4 T-DERMAL; MAGN30S PO
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
[2018-01-03 19:14] VITALS: BP 114/78; PULSE 72; RESP 16; O2SAT 98
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
[2018-01-04 01:30] VITALS: BP 116/75; PULSE 72; RESP 16; O2SAT 98
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
== END 2018-01-04 09:15 | disposition home or self-care (01) ==
LOC: NEPE 18:56
DX: F43.23 Adjustment disorder with mixed anxiety and depressed mood (principal)
CPT/HCPCS: 99284